=== PATIENT | male | born 1985 | race Caucasian/White ===

== ENCOUNTER 2017-11-12 17:20 | Emergency (ER) | payer BC ==
[2017-11-12 17:30] VITALS: BP 139/87; PULSE 80; RESP 18; TEMP 97.2; O2SAT 99
--- NOTE | 2017-11-12 17:41 | C.PDOC ---
History Of Present Illness 31-year-old male, presents to the emergency department with complaints of dental pain. Patient chipped right upper tooth a few weeks ago. Initially, it did not hurt, but gradually developed pain, associated with swelling around facial area. Patient notes he is taking Advil at home with minimal relief, prompting visit. Denies any numbness/weakness or fever. Time Seen by Provider: 11/12/17 17:37 Chief Complaint (Nursing): Dental Pain History Per: Patient History/Exam Limitations: no limitations Onset/Duration Of Symptoms: Days Current Symptoms Are (Timing): Still Present Severity: Moderate Past Medical History Reviewed: Historical Data, Nursing Documentation, Vital Signs Vital Signs: Last Vital Signs Temp 97.2 F L 11/12/17 17:26 Pulse 80 11/12/17 17:26 Resp 18 11/12/17 17:26 BP 139/87 11/12/17 17:26 Pulse Ox 99 11/12/17 18:25 - Medical History PMH: No Chronic Diseases Family History: States: No Known Family Hx - Social History Hx Tobacco Use: No Hx Alcohol Use: No Hx Substance Use: No - Immunization History Hx Tetanus Toxoid Vaccination: No Hx Influenza Vaccination: No Hx Pneumococcal Vaccination: No Review Of Systems Constitutional: Negative for: Fever ENT: Positive for: Other (tooth pain) Respiratory: Negative for: Shortness of Breath Gastrointestinal: Negative for: Vomiting Physical Exam - Physical Exam Appears: Non-toxic, No Acute Distress Skin: Normal Color, Warm, Dry, No Rash Head: Atraumatic, Normacephalic Eye(s): bilateral: Normal Inspection, EOMI Nose: Normal Oral Mucosa: Moist Tongue: Normal Appearing, No Swelling Lips: Normal Appearing, No Swelling Teeth: Caries, Other (Tooth#5 : Large hole, tender. Gums are swollen with cheek swelling.) Neck: Normal ROM Lymphatic: Normal Exam Chest: Symmetrical Cardiovascular: Rhythm Regular, No Murmur Respiratory: Normal Breath Sounds, No Wheezing Extremity: Bilateral: Atraumatic, Normal ROM Neurological/Psych: Oriented x3, Normal Speech ED Course And Treatment O2 Sat by Pulse Oximetry: 99 Medical Decision Making Medical Decision Making: Plan: * Penicillin and Tylenol #3 Patient instructed to take medication as prescribed and f/u with dentist as scheduled in one week. Asked to return if any new or worsening symptoms develop Disposition Counseled Patient/Family Regarding: Need For Followup, Rx Given - Disposition Referrals: Louis Quezada DO [[facility]] - Disposition: HOME/ ROUTINE Disposition Time: 18:15 Condition: GOOD Additional Instructions: Please follow up with your dentist or clinic for further evaluation Take pain medicine as needed and antibiotic as indicated Prescriptions: Acetaminophen with Codeine [Tylenol with Codeine No. 3 300 mg-30 mg] 1 tab PO Q8 PRN #20 tab PRN Reason: Pain, Moderate (4-7) Ibuprofen [Motrin] 600 mg PO Q8 #30 tab Penicillin VK [Penicillin VK Tab] 250 mg PO QID #28 tab Instructions: Tooth Decay, Adult Forms: [facility] (Korean) - POA Present On Arrival: None - Clinical Impression Clinical Impression: Dental caries
[2017-11-12] MEDS ORDERED: Acetaminophen-Codeine 300/30 mg Tab PO STA (17:46)
[2017-11-12] MEDS ORDERED: Acetaminophen-Codeine 300/30 mg Tab PO ONE (18:05)
== END 2017-11-12 18:16 | disposition home or self-care (01) ==
LOC: C.ER 17:20
DX: K02.9 Dental caries, unspecified (principal)